=== PATIENT | male | born 1990 | race Caucasian/White ===

== ENCOUNTER 2025-04-14 14:48 | Emergency (ER) | payer OTHER, SELFPAY ==
[2025-04-14 14:54] VITALS: BP 151/89; PULSE 75; RESP 20; TEMP 36.8; O2SAT 97; BMI 34.8
--- NOTE | 2025-04-14 15:07 | EDNOTE_ITS ---
<Statement entered by Sri Huang MD - 04/15/25 15:27> As co-signing physician, I was present and available for consult prn. I concur with the plan and care as documented by the midlevel provider. ED General RME/HPI General Chief complaint: Eye Problems Stated complaint: Eyes are burning after eye drops from M.D. Time Seen by Provider: 04/14/25 14:51 Arrival date/time: 04/14/25 14:48 CC: Bilateral eye pain with blurry vision HPI patient was just seen by an general house worker, who put numbing medicine , into his eye promptly causing intense stinging to the eyes which lasted greater than 1 hour and resulting in a blurred vision. The patient drove home then return to the general house worker office. Patient states they promptly left the general house worker office without any intervention and came to the emergency room. Patient is awake alert oriented in moderate discomfort but not in any acute distress. Related Data Previous Rx's ?Medication ?Instructions ?Recorded ibuprofen 800 mg tablet 800 mg PO QID PRN pain #20 t abs 01/08/18 tobramycin 0.3 % eye drops 1 drp ophthalmic (eye) Q4H #5 mL 04/14/25 Allergies Allergy/AdvReac Type Severity Reaction Status Date / Time No Known Allergies Allergy Verified 04/14/25 14:52 Review of Systems Review of Systems Narrative Review of Systems: GEN: No fever, no chills, no weight loss EYES: No discharge, +visual changes, + pain HEENT: No ear pain, no congestion, no sore throat PULM: No shortness of breath, no cough, no congestion CV: No chest pain, no dyspnea on exertion, no palpitations GI: No nausea, no vomiting, no diarrhea, no pain, no constipation : No frequency, no urgency, no dysuria MUSC/SKEL: No joint pain, no back pain SKIN: No rash PSYCH: No hallucinations, no depression HEME/LYMPH: No easy bleeding or bruising tendencies NEURO: No weakness, no headache Past Medical History Past Medical History CARDIAC: Negative Congestive Heart Failure RESPIRATORY: Negative Chronic Obstructive Pulmonary Disease (COPD) GENITOURINARY: Negative Renal Disease ENDOCRINE: Negative Diabetes Mellitus Type 1 or Diabetes Mellitus Type 2 Social History SMOKING STATUS: Former smoker ED Exam Narrative Physical exam: [General: Moderate discomfort but not in any acute distress Head normocephalic HEENT: Eyes: No light sensitivity pupils are PERRLA, mild cloudiness to the lens of both eyes. Injected conjunctiva tracking. Although the subsystems of HEENT are within acceptable limits After flushing each eye with half liter of normal saline, tetracaine was applied with immediate relief. With fluorescein dye, both corneas show complete abrasions. No foreign body identified. No fluorescein in the anterior chambers. Snellen test: 20/40 in both eyes. Patient states he has mild haziness Neck is supple nontender Chest equal chest rise nontender to palpation Respiratory: Clear to auscultation no wheezes crackles or rubs CV: Rate rhythm is regular no murmurs rubs or clicks Abdomen is distended secondary to body habitus soft nontender no masses positive bowel sounds all 4 quadrants Back: No CVA tenderness no spinous process tenderness from cervical spine thoracic and lumbar spine Skin: Intact no petechiae rash induration ulceration or crepitus Extremities: Moving all extremity against resistance cap refill less than 2 seconds neurosensory intact Neuro: Awake alert oriented x3 Glascow coma 15 no focal deficits] Course Quality Measures none Orders Category Date Time Status Miscellaneous Nursing Order NOW Care 04/14/25 15:00 Completed Fluorescein Sodium [Bio-Angeline] Med 04/14/25 15:06 Discontinued 1 mg BOTH EYES X1 ONE TETRACAINE Op Isabel 0.5% [Pontocaine Op Isabel 0.5%] Med 04/14/25 15:06 Discontinued 1 drop BOTH EYES X1 ONE oxyCODONE/APAP 5/325 [Percocet 5/325] Med 04/14/25 15:00 Discontinued 1 tab PO X1 ONE Vital Signs Vital signs: Vital Signs Temperature 98.2 F 04/14/25 14:54 Pulse Rate 75 04/14/25 14:54 Respiratory Rate 20 04/14/25 14:54 Blood Pressure 151/89 H 04/14/25 14:54 Pulse Oximetry (%) 97 04/14/25 14:54 Oxygen Delivery Method Room Air 04/14/25 14:54 Discharge Plan Plan Patient Disposition: HOME (Self Care) Patient condition on transfer: Stable Prescriptions/Referrals Prescriptions/Med Rec: New tobramycin 0.3 % drops 1 drp ophthalmic (eye) Q4H Qty: 5 0RF No Action ibuprofen 800 mg tablet 800 mg PO QID PRN (Reason: pain) Qty: 20 0RF Referrals: ad [Other] - In 1 week Ivan Olivo MD [Referring Provider] - In 1 week Problem List Clinical Impression: Corneal abrasion Patient/Caregiver Discharge Instructions Other Activity Instructions:: Use the eyedrops as prescribed until you see the nut tapper or they run out which ever comes first. Keep your eyes covered with safety glasses at all times avoid direct sunlight. Ibuprofen or Tylenol for pain. If there is a worsening of symptoms in spite of the medications return the emergency room immediately for further evaluation. Education Materials: ED Corneal Abrasion Print Language: [place] Citizen Stand Alone Forms: Rohini Award Info., Work/School Release, Patient Portal Info Letter RAS/JOHN Supervising Physician FARIDA Supervising Physician: Sim GAMING Clinical Information Provided by patient Medical Records Reviewed [facility] Meds/Rx Considered, not Ordered None Labs/Rad/Tests considered, not Ordered None Chronic Illness/Social Conditions Add or document further as needed: Obesity EKG EKG not done Lab Interpretation Labs: none Imaging Imaging interpretation: none Medication Administration(s) Medication Administration History Discontinued Medications Fluorescein Sodium (Fluorescein Sod 1 Mg Strp) 1 mg BOTH EYES X1 ONE Stop: 04/14/25 15:07 Last Admin: 04/14/25 15:29 Dose: 1 mg Documented By: GERALDO Comments: USED BY PROVIDER Oxycodone/Acetaminophen (Oxycodone/Apap 5/325 Tablet) 1 tab PO X1 ONE Stop: 04/14/25 15:01 Last Admin: 04/14/25 15:05 Dose: 1 tab Documented By: GERALDO Tetracaine HCl (Tetracaine Pf Op Isabel 0.5% 4 Ml Drpette) 1 drop BOTH EYES X1 ONE Stop: 04/14/25 15:07 Last Admin: 04/14/25 15:29 Dose: 1 drop Documented By: GERALDO Comments: USED BY PROVIDER Diagnosis Differential diagnosis: Corneal abrasion, iritis, corneal erosion Differential dx and/or dx ruled out: Corneal abrasion Most likely dx, and/or detailed dx discussion: Will have the patient follow-up with ophthalmology Dispositon Disposition: Discharge Home
[2025-04-14] MEDS: TETRACAINE PF OP SOL 0.5% 4 ML DRPETTE 1 DROP BOTH EYES (15:29)
[2025-04-14] MEDS: FLUORESCEIN SOD 1 MG STRP BOTH EYES (15:29)
== END 2025-04-14 15:58 | disposition home or self-care (01) ==
PROVIDERS: Emergency Provider Emergency Medicine; PCP Family Medicine
DX: S05.02XA Injury of conjunctiva and corneal abrasion without foreign body, left eye, initial encounter (principal); S05.01XA Injury of conjunctiva and corneal abrasion without foreign body, right eye, initial encounter; X58.XXXA Exposure to other specified factors, initial encounter
CPT/HCPCS: 99282; A9270